=== PATIENT | female | born 1950 | race Caucasian/White ===

== ENCOUNTER 2020-09-20 21:18 | Emergency (ER) | payer MEDICARE, BC ==
[2020-09-20 22:52] LABS: HEMOGLOBIN 12.3 gm/dl (12.3-15.3); RED BLOOD COUNT 4.34 M/UL (4.00-5.10); WHITE BLOOD COUNT 7.1 K/UL (4.5-11.0)
[2020-09-20 23:16] LABS: BUN/CREATININE RATIO 25 (0-10)
[2020-09-20] MEDS ORDERED: PREDNISONE20 MG PO (23:25)
[2020-09-20] MEDS ORDERED: FLONASE 0.05% N16 GM (23:25)
== END 2020-09-20 23:40 | disposition home or self-care (01) ==
LOC: ER1 21:18
PROVIDERS: Family Medicine
DX: R06.02 Shortness of breath (principal); R05 Cough; T78.1XXA Other adverse food reactions, not elsewhere classified, initial encounter
CPT/HCPCS: 80053; 82550; 82553; 83874; 84484; 85025; 93005; 99283; J2930

== ENCOUNTER → 2021-12-02 | Outpatient (CLI) | payer MEDICARE, BC ==
[~2021-12-02] MED LIST: FLONASE 0.05% N16 GM; PREDNISONE20 MG PO
== END ==
LOC: KOH-I 09:00
DX: J32.9 Chronic sinusitis, unspecified (principal); R09.81 Nasal congestion; R51.9 Headache, unspecified
CPT/HCPCS: 70486